=== PATIENT | female | born 1975 | race Caucasian/White ===

== ENCOUNTER 2019-03-10 10:32 | Inpatient (IN) | payer MEDICAID ==
[~2019-03-10] VITALS: Ht 172.7 cm; Wt 92.8 kg
[2019-03-10 10:49] VITALS: Ht 172.7 cm; Wt 92.8 kg
--- NOTE | 2019-03-10 11:36 | TRIAGE ---
OB Triage Datetime Report Generated by CPN: 03/10/2019 11:36 Datetime: 03/10/2019 11:28 Stage of : OB Triage Maternal Assessment Level of Consciousness: Keenly Alert, Responsive DTR's/Clonus: DTRs 1+ Headache: Denies Breath Sounds, Left: Clear and Equal Breath Sounds, Right: Clear and Equal Nausea/Vomiting: Denies RUQ Epigastric Pain: Denies Labor Evaluation Frequency: X1 Monitor Mode: External Duration (sec)2399: 80 Quality: Mild Pattern: Normal: <= 5 Contractions in 10 Minutes Resting Tone [place]: Relaxed Heart Rate FHR Baseline Rate: 125 Monitor Mode: External US Variability: Moderate 6-25 bpm Accelerations: 15X15 Decelerations: None Category: Category I Pain Assessment Pain Scale: 0 Pain Presence: None/Denies Pain Type: N/A Pain Goal: 3 Vaginal Exam Membrane Status: Intact Datetime: 03/10/2019 11:11 Maternal Assessment Level of Consciousness: Keenly Alert, Responsive DTR's/Clonus: DTRs 1+ Headache: Denies Blurred Vision: No Respiratory Effort: Unlabored Breath Sounds, Left: Clear and Equal Breath Sounds, Right: Clear and Equal Nausea/Vomiting: Denies RUQ Epigastric Pain: Denies Facial Edema: None Labor Evaluation Frequency: X1 Monitor Mode: External Duration (sec)2399: 80 Quality: Mild Pattern: Normal: <= 5 Contractions in 10 Minutes Resting Tone [place]: Relaxed Heart Rate FHR Baseline Rate: 125 Monitor Mode: External US Variability: Moderate 6-25 bpm Accelerations: 15X15 Decelerations: None Category: Category I Pain Assessment Pain Scale: 0 Pain Presence: None/Denies Pain Type: N/A Pain Goal: 3 Vaginal Exam Membrane Status: Intact Datetime: 03/10/2019 10:34 EGA: 38.2 Datetime: 03/10/2019 10:30 Assessment Type: Triage Maternal Assessment Level of Consciousness: Keenly Alert, Responsive DTR's/Clonus: DTRs 2+; No Clonus Headache: Denies Blurred Vision: No Respiratory Effort: Unlabored; Regular Rhythm; Equal Expansion Breath Sounds, Left: Clear and Equal Breath Sounds, Right: Clear and Equal Nausea/Vomiting: Denies RUQ Epigastric Pain: Denies Lower Extremities Edema: None Degree: None Upper Extremities Edema: None Degree: None Facial Edema: None Fall Risk Assessment History of Falling: (0) No Secondary Diagnosis: (0) No Ambulatory Aid: (0) Bedrest/Nurse Assist IV Therapy: (0) No Gait: (0) Normal/Bedrest/Immobile Mental Status: (0) Oriented to Own Ability Fall Score: 0 Fall Risk Score Definition: No Risk: No action required Datetime: 03/10/2019 10:17 Time of Arrival: 03/10/2019 10:17 Arrived By: Ambulatory Arrived From: Home Chief Complaint: PT CAME IN C/O LEAKING OF FLUID Movement: Present Contractions: Denies/Absent Rupture of Membranes: Denies Vaginal Discharge: Denies Recent Sexual Intercouse: Denies Abdominal Trauma: Not Applicable Additional Patient Complaints: NONE Time Provider Notified: 03/10/2019 11:27 Provider Notified: ROXANNE Initial Plan: ROM PLUS AND BPP
[2019-03-10] MEDS ORDERED: CARBOPROST 250 MCG INJ IM PRN ×2 (13:00→19:30)
[2019-03-10] MEDS ORDERED: OXYTOCIN 30 UNITS/LR 500 ML IV SCH ×2 (13:00→19:27)
[2019-03-10] MEDS ORDERED: MISOPROSTOL 200 MCG TAB PR PRN ×2 (13:00→19:30)
[2019-03-10] MEDS ORDERED: CEFAZOLIN 2 GM/50 ML (PMX) 50 ML IVPB SCH ×2 (13:00→22:00)
[2019-03-10] MEDS ORDERED: METHYLERGONOVINE 0.2 MG INJ IM PRN ×2 (13:00→19:30)
[2019-03-10] MEDS ORDERED: OXYTOCIN 30 UNITS/LR 500 ML IV PRN ×2 (13:00→19:30)
[2019-03-10] MEDS ORDERED: AZITHROMYCIN 500MG/NS (PMX) 250 ML IVPB ONE (17:30)
[2019-03-10] MEDS ORDERED: OXYTOCIN 30 UNITS/LR 500 ML BAG IV ONE (18:26)
[2019-03-10] MEDS ORDERED: DEXAMETHASONE 4 MG/ML 1 ML INJ ONE (18:27)
[2019-03-10] MEDS ORDERED: ONDANSETRON 4 MG INJ ONE (18:28)
[2019-03-10] MEDS ORDERED: morphine SULFATE/PF (10 MG/10 ML) INJ ONE (18:35)
[2019-03-10] MEDS ORDERED: FENTAnyl 50 MCG/ML VIAL ONE (18:36)
--- NOTE | 2019-03-10 18:49 | PREAC ---
Date/Time of Note Date/Time of Note DATE: 03/10/19 TIME: 18:47 Anesthesia Eval and Record Evaluation Time Pre-Procedure Interview DATE: 03/10/19 TIME: 18:00 Age 43 Sex female NPO: 8 hrs Preoperative diagnosis IUP AT 38 9 WEEKS Planned procedure REPEAT C SECTION Past Medical History Past Medical History: Includes GI: Obesity Surgery & Anesthesia Issues No known issue Meds Anticoagulation: No Beta David within 24 hr: No Reason Beta David not given: Pt. not on B-David Current Medications Lactated Ringer's 1,000 ml @ 125 mls/hr Q8H IV ; Start 03/10/19 at 12:42 Cefazolin Sodium/ Dextrose 50 ml @ 100 mls/hr ONCE IVPB ; Start 03/10/19 at 13:00 Oxytocin/Lactated Ringer's 500 ml @ 125 mls/hr POST IV ; Start 03/10/19 at 13:00 Oxytocin/Lactated Ringer's 500 ml @ 0 mls/hr ONCE PRN IV .VAGINAL BLEEDING; Start 03/10/19 at 13:00 Methylergonovine Maleate (Methergine) 0.2 mg ONCE PRN IM .VAGINAL BLEEDING; Start 03/10/19 at 13:00 Carboprost Tromethamine (Hemabate) 250 mcg ONCE PRN IM .VAGINAL BLEEDING; Start 03/10/19 at 13:00 Misoprostol (Cytotec) 1,000 mcg ONCE PRN MI .VAGINAL BLEEDING; Start 03/10/19 at 13:00 Meds reviewed: Yes Allergies Coded Allergies: No Known Allergy (Unverified , 03/10/19) Allergies Reviewed: Yes Labs/Studies Labs Reviewed: Reviewed by anesthesiologist Result Diagram: 03/10/19 1342 Laboratory Tests 03/10/19 13:42 Blood Bank Test 03/10/19 13:42 Antibody Screen NEGATIVE Blood Type A POSITIVE Rh Immune Globulin Candidate NO test: Positive Pre-procedure Exam Airway: Adequate mouth opening, Adequate thyromental dist Mallampati: Mallampati II Teeth: Normal Lung: Normal Heart: Normal ASA Physical Status ASA physical status: 2 Emergency: None Planned Anesthetic Neuraxial: Spinal Planned Pain Management Sub-arachniod narcotics, Parenteral pain med Pre-operative Attestations Prior to commencing anesthesia and surgery, the patient was re-evaluated, there was verification of: *The patient's identity *The results of appropriate recent lab work and preoperative vital signs *The above evaluation not changing prior to induction *Anesthetic plan, risk benefits, alternative and complications discussed with patient/family; questions answered; patient/family understands, accepts and wishes to proceed. DIMITRIS REYNOLDS Mar 10, 2019 18:49
[2019-03-10] MEDS ORDERED: PHENYLephrine (100 MCG/ML) 10ML SYG ONE (18:56)
[2019-03-10] MEDS ORDERED: ZOLPIDEM 5 MG TAB PO PRN (19:00)
[2019-03-10] MEDS ORDERED: HYDROmorphONE 0.5 MG/0.5 ML SYG IV PRN ×2 (19:00)
[2019-03-10] MEDS ORDERED: DIPHENHYDRAMINE 50 MG INJ IV PRN (19:00)
[2019-03-10] MEDS ORDERED: ONDANSETRON 4 MG INJ IV PRN ×2 (19:00→19:30)
[2019-03-10] MEDS ORDERED: NALOXONE (0.4 MG/ML) INJ IV PRN (19:00)
--- NOTE | 2019-03-10 19:24 | OPPN ---
Date/Time of Note Date/Time of Note DATE: 03/10/19 TIME: 19:22 Operative Report Planned Procedure Procedure date Mar 10, 2019 Procedure(s) repeat low transverse CD Performed by see signature line Mobile Home Technician: RAMONA REAL M.D. 2nd Mobile Home Technician none Anesthesiologist: DIMITRIS REYNOLDS Pre-procedure diagnosis iup at 38 wks ga, prom, previous CD X 3, desire elective repeat CD [id number] Anesthesia Type: Waldo1g spinal Post-Procedure Post-procedure diagnosis same Findings a viable male 8/9 weight 5lb 12 oz. normal uterus tubes and ovaries Estimated Blood Loss: 500 - 600 mls Specimen(s) none Grafts/Implant(s) none Complication(s) none GAVIN OLIVEIRA MD Mar 10, 2019 19:24
[2019-03-10] MEDS ORDERED: NACL 0.9% 3 ML SYG IV SCH (19:30)
[2019-03-10] MEDS ORDERED: ACETAMINOPHEN 325 MG TAB PO PRN (19:30)
[2019-03-10] MEDS ORDERED: BENZOCAINE 20% 56 ML SPRAY TOP PRN (19:30)
[2019-03-10] MEDS ORDERED: LANOLIN HPA 1 PKT TOP PRN (19:30)
[2019-03-10] MEDS ORDERED: WITCH HAZEL/GLYCERIN PAD PR PRN (19:30)
[2019-03-10] MEDS ORDERED: OXYCODONE/ASPIRIN (4.88/325) TAB PO PRN (19:30)
--- NOTE | 2019-03-10 20:20 | PREOPHP ---
DATE OF ADMISSION: 03/10/2019 HISTORY OF PRESENT ILLNESS: Ms. Krysta Engle is a 43-year-old 4, para 3, EDC 03/22/2019 intrauterine at 38 weeks and 2 days gestational age, presented to triage complaining of leaking fluid since last night. She was evaluated to be in premature rupture of membranes. After explaining the risks, benefits and alternatives, the patient desires elective repeat delivery. She denies any contractions, vaginal bleeding. Her care took place with Dr. Solorio. PAST MEDICAL HISTORY: None. MEDICATIONS: vitamins. PAST SURGICAL HISTORY: X 3 previous , x1 laparoscopic cholecystectomy. OBSTETRIC HISTORY: X 3 previous section. GYNECOLOGIC HISTORY: 12/ regular/ 3 to 4 days. Denies any sexually transmitted infections. Sexually active with 1 partner. SOCIAL HISTORY: Denies any smoking, drugs or alcohol. FAMILY HISTORY: None. REVIEW OF SYSTEMS: All within normal, except for history of present illness. PHYSICAL EXAMINATION: HEENT: Within normal. LUNGS: CTA bilateral. CARDIOVASCULAR: S1, S2, regular rhythm. ABDOMEN: Gravid, nontender. Negative CVA bilateral. EXTREMITIES: Negative edema. No calf tenderness. PELVIC: Vaginal exam short and closed with positive pooling. ROM test positive. heart tracing category 1. [place]: Occasional contractions. ASSESSMENT: Intrauterine at 38 weeks and 2 days gestational age with premature rupture of membrane, previous x3, desires elective repeat delivery. PLAN: Consent for repeat . Risks, benefits and alternatives explained. All questions were answered. Dictated By: GAVIN BRITO/JAYME Conf#: [id number] DID#: [id number] MARIFER
[2019-03-10] MEDS: LACTATED RINGER'S 1,000 ML IV SCH (20:42)
--- NOTE | 2019-03-10 21:06 | OPR ---
DATE OF OPERATION: 03/10/2019 PREOPERATIVE DIAGNOSIS: Intrauterine at 38 weeks gestational age, premature rupture of membranes, previous x3, desires elective repeat delivery. Declined vaginal after . POSTOPERATIVE DIAGNOSIS: Intrauterine at 38 weeks gestational age, premature rupture of membranes, previous x3, desires elective repeat delivery. Declined vaginal after . OPERATION PERFORMED: Repeat low transverse delivery. SURGEON: Baltazar Bravo MD. REPLANTING MACHINE CREW: Kota Shine. ANESTHESIOLOGIST: Dr. Sean Paz. ANESTHESIA: Spinal. ESTIMATED BLOOD LOSS: 500 mL. ESTIMATED BLOOD LOSS: None. FINDINGS: A viable male, 8 and 9 respectively at 1 and 5 minutes, weight 5 pounds 12 ounces. Normal uterus, tubes and ovaries. DESCRIPTION OF PROCEDURE: After explaining the risks, benefits and alternatives to the patient, consent signed in chart, the patient was taken to the operating where spinal anesthesia was found to be adequate. She was then prepared and draped in normal sterile fashion in dorsal position with a leftward tilt. A Pfannenstiel skin incision was then made with a scalpel and carried to the underlying fascia. The fascia was incised in the midline. Incision extended laterally with Park scissors. The superior aspect of the fascial incision was grasped with Konstantin clamps, elevated and the underlying rectus muscle dissected off bluntly. Attention was then turned to the inferior aspect incision which in similar fashion was grasped with Konstantin clamps, elevated and the underlying rectus muscle was dissected bluntly. The rectus muscles were then in midline, peritoneum identified, tented up and entered into sharply with Metzenbaum scissors. The peritoneal incision was extended superiorly with good visualization of the bladder. The bladder blade was inserted and lower segment incised in transverse fashion with a scalpel. The uterine incision was extended laterally. The bladder blade was removed and the 's head delivered atraumatically. The nose and mouth were suctioned, cord clamped and cut. The infant was handed off to awaiting statistical engineer. The placenta was then removed and cleared of all clots and debris. The uterine incision was repaired with 3-0 chromic in a running locked fashion. A second layer of same suture was used for imbrication obtaining hemostasis. The uterus was returned to the abdomen. The gutters were cleared of clots. The peritoneum and rectus abdominis muscles reapproximated with 2-0 Vicryl in interrupted fashion. The fascia was reapproximated with 0 Vicryl in a running fashion. The subcutaneous tissue was reapproximated with 2-0 plain gut in a running fashion. The skin was closed with absorbable sara. The patient tolerated procedure well. Sponge, lap, needle counts correct. The patient was taken to recovery room in stable condition. Dictated By: BALTAZAR BRITO/JAYME Conf#: [id number] DID#: [id number] MTDD
[2019-03-10 21:20] VITALS: BP 105/60; PULSE 54; RESP 18
[2019-03-10] MEDS: SENNA/DOCUSATE NA (8.6MG/50MG) TAB PO SCH (21:20)
[2019-03-10 22:30] VITALS: BP 142/74; PULSE 61; RESP 18
[2019-03-10] MEDS: KETOROLAC 30 MG INJ IV PRN (23:06)
[2019-03-11] VITALS: BP 120/66; PULSE 58; RESP 20
[2019-03-11] MEDS: CEFAZOLIN 2 GM/50 ML (PMX) 50 ML IVPB SCH ×3 (02:14→17:48)
[2019-03-11 04:00] VITALS: BP 107/63; PULSE 54; RESP 19
[2019-03-11] MEDS: LACTATED RINGER'S 1,000 ML IV SCH ×2 (04:42→10:09)
[2019-03-11] MEDS: IBUPROFEN 800 MG TAB PO SCH ×4 (06:00→18:00)
--- NOTE | 2019-03-11 07:09 | QN ---
Documentation Comment progress note pod 1 patient seen and evaluated dent clear no complaints vs stable afebrile ab dressing clean/dry no distention non tender extremity no edema no calf tenderness a/ sp cd pod 1 stable afebrile p/ f/u cbc encourage ambulation GAVIN OLIVEIRA MD Mar 11, 2019 07:09
[2019-03-11 08:00] VITALS: BP 112/68; PULSE 54; RESP 19
[2019-03-11] MEDS: SENNA/DOCUSATE NA (8.6MG/50MG) TAB PO SCH ×2 (10:04→20:49)
--- NOTE | 2019-03-11 10:14 | PAC ---
Date/Time of Note Date/Time of Note DATE: 03/11/19 TIME: 10:12 Post-Anesthesia Notes Post-Anesthesia Note Last documented vital signs Vital Signs Date Temp Pulse Resp B/P (MAP) Pulse Ox O2 O2 Flow FiO2 Time Delivery Rate 03/11/19 98.0 54 19 107/63 97 Room Air 04:00 (78) Activity: WNL Respiratory function: WNL Cardiovascular function: WNL Mental status: Baseline Pain reasonably controlled: Yes Hydration appropriate: Yes Nausea/Vomiting absent: Yes DIMITRIS REYNOLDS Mar 11, 2019 10:14
--- NOTE | 2019-03-11 10:15 | OPPN ---
Date/Time of Note Date/Time of Note DATE: 03/11/19 TIME: 10:15 Anesthesia Follow up Anesthesia Follow up Last documented vital signs Vital Signs Date Temp Pulse Resp B/P (MAP) Pulse Ox O2 O2 Flow FiO2 Time Delivery Rate 03/11/19 98.0 54 19 107/63 97 Room Air 04:00 (78) Respiratory function: WNL Cardiovascular function: WNL Comments satisfactory pain management with duramorph DIMITRIS REYNOLDS Mar 11, 2019 10:15
[2019-03-11 12:00] VITALS: BP 116/66; PULSE 51; RESP 18
[2019-03-11 15:55] VITALS: BP 104/54; PULSE 62; RESP 16
[2019-03-11] MEDS: KETOROLAC 30 MG INJ IV PRN (16:15)
[2019-03-11 19:30] VITALS: BP 118/59; PULSE 61; RESP 19
[2019-03-11] MEDS: OXYCODONE/ASPIRIN (4.88/325) TAB PO PRN (22:59)
[2019-03-12] MEDS: IBUPROFEN 800 MG TAB PO SCH ×5 (00:58→23:55)
[2019-03-12] MEDS: OXYCODONE/ASPIRIN (4.88/325) TAB PO PRN ×2 (07:44→20:31)
[2019-03-12 08:00] VITALS: BP 101/65; PULSE 60; RESP 18
[2019-03-12] MEDS: SENNA/DOCUSATE NA (8.6MG/50MG) TAB PO SCH ×2 (10:18→20:31)
[2019-03-12 16:37] VITALS: BP 119/64; PULSE 54; RESP 18
--- NOTE | 2019-03-12 19:14 | QN ---
Documentation Comment progress note pod 2 patient seen and evaluated dent clear no complaints vs stable afebrile ab c/d/i no distention non tender extremity no edema no calf tenderness a/ sp cd pod 2 stable afebrile p/ encourage ambulation GAVIN OLIVEIRA MD Mar 12, 2019 19:14
--- NOTE | 2019-03-12 19:15 | PD.PPDC ---
DE[facility] SPECIALIST Discharge Instruction Condition [id number] Patient Condition: Vjcwk6k Fair Diet Edmqz3Ko Diet: Ctzij0n Resume Regular Diet Activity/Restrictions Qgttk5Es Activity: Jxalg1q Normal Activity May Shower Zikhn2De Restrictions: Tokby5k No Exercising No Lifting No Driving No Sexual Activity Nothing in the Vagina No Frederica No Tampons, douche Wound/Drain Care Instructions [id number] Wound/Drain Care Instructions: Xxxeq8m Wash with soap and water Keep clean and dry Follow-up Follow-up with Physician: 2, Week/Weeks Return to clinic for Dphsn4Lt LSW Instructions: Lxqrc2k Fever greater than 101 Chills Worsening abdominal pain Excessive Vaginal Bleeding More than 2 pads per hour Unable to tolerate diet Wmmdu1Oh OB Instructions: Aohoo0a Breast Tenderness Depression Blurried Vision Headache Nkpub4Hq Surgical Instructions: Jneks1g Incisional Drainage Incisional Redness GAVIN OLIVEIRA MD Mar 12, 2019 19:15
[2019-03-12 20:30] VITALS: BP 125/60; PULSE 59; RESP 18
[2019-03-13 04:00] VITALS: BP 119/70; PULSE 58; RESP 18
[2019-03-13] MEDS: IBUPROFEN 800 MG TAB PO SCH ×2 (05:55→11:30)
[2019-03-13 08:00] VITALS: BP 114/61; PULSE 56; RESP 18
[2019-03-13] MEDS: SENNA/DOCUSATE NA (8.6MG/50MG) TAB PO SCH (09:14)
--- NOTE | 2019-03-13 11:54 | DS ---
DATE OF ADMISSION: 03/10/2019 DATE OF DISCHARGE: 03/12/2019 PRIMARY DIAGNOSIS: Intrauterine at 38 weeks gestational age with premature rupture of memb aundrea, previous x3, desires elective repeat delivery. PROCEDURE: Repeat low transverse delivery. CONDITION ON DISCHARGE: Stable. ACTIVITY: None per vagina, no lifting x6 weeks. DIET: Regular. MEDICATIONS ON DISCHARGE: Motrin 800 mg q. 8 hours p.r.n. severe pain. DISCHARGE SUMMARY: Ms. Krysta Engle underwent a repeat low transverse delivery on 03/10/20 19. She had a viable male, 8 and 9 respectively at 1 and 5 minutes, weight 5 pounds 12 ounces. She had an uneventful postop day 1 and 2. She was discharged on postop day 3. Her incision is [place] an, dry, and intact. She is ambulating, tolerating diet, positive flatulence, positive bowel movemen t. She will follow up in the clinic in 2 weeks for /postop care. Dictated By: GAVIN BRITO/JAYME Conf#: [id number] DID#: [id number]
--- NOTE | 2019-03-14 15:44 | DELSUM ---
Delivery Summary A-C Datetime Report Generated by CPN: 03/14/2019 15:44 DELIVERY PERSONNEL Music Historian: Mao, Sandhya MATERNAL INFORMATION Delivery Anesthesia: Spinal Medications in Delivery: see anesthesia record Delivery QBL (ml): 500 Placenta Cultured: No Maternal Complications: Other Other Maternal Complications: Advanced maternal age LABOR SUMMARY EDC: 03/22/2019 00:00 No. Babies in Womb: 1 Attempted: No Labor Anesthesia: None LABOR INFORMATION Reason for Induction: Not Applicable Group B Beta Strep: Done, Result Unknown Antibiotics # of Doses: X2 Antibiotics Time of Last Dose: 03/10/2019 18:20 Steroids Given: None Reason Steroids Not Administered: Not Applicable MEMBRANES Membranes Rupture Method: Spontaneous Rupture of Membranes: 03/10/2019 06:30 Length of Rupture (hr): 12.25 Amniotic Fluid Color: Clear Amniotic Fluid Amount: Moderate Amniotic Fluid Odor: None STAGES OF LABOR Stage 3 hr: 0 Stage 3 min: 1 CSECTION DELIVERY Primary Indication: Repeat Elective Secondary Indication: >2 Previous CSections CSection Urgency: Elective CSection Incidence: Repeat Labor: Labor Elective: Elective CSection Incision: Lower Uterine Transverse BABY A INFORMATION Delivery Date/Time: 03/10/2019 18:45 Method of Delivery: Born in Route : No : N/A Forceps: N/A Vacuum Extraction: N/A Shoulder Dystocia : No SHOULDER DYSTOCIA BABY A Delivery Date/Time: 03/10/2019 18:45 PRESENTATION/POSITION BABY A Presentation: Cephalic Cephalic Presentation: Vertex Vertex Position: Right Occipital Posterior Breech Presentation: N/A PLACENTA INFORMATION BABY A Placenta Delivery Time : 03/10/2019 18:46 Placenta Method of Delivery: Manual Removal Placenta Status: Delivered SCORES BABY A Heart Rate 1 min: >100 bpm Resp Effort 1 min: Good Cry Reflex Irritability 1 min: Cough/Sneeze/Pulls Away Muscle Tone 1 min: Active Motion Color 1 min: Blue/Pale Resuscitation Effort 1 min: Tactile Stimulation SCORE 1 MIN: 8 Heart Rate 5 min: >100 bpm Resp Effort 5 min: Good Cry Reflex Irritability 5 min: Cough/Sneeze/Pulls Away Muscle Tone 5 min: Active Motion Color 5 min: Body [place], Extremit Blue Resuscitation Effort 5 min: Tactile Stimulation SCORE 5 MIN: 9 INFANT INFORMATION BABY A Gestational Age at Delivery: 38.2 Gestational Status: Early Term- 37- 38.6 Weeks Outcome : Liveborn, with signs of life Condition : Stable Sex: Male IDENTIFICATION/MEDS BABY A ID Band Number: [id number] ID Band Location: Right Leg; Left Arm Sensor Applied: Yes Sensor Number: [id number] Sensor Location : Cord Clamp Vitamin K Given : Not Given Erythromycin Given: Not Given WEIGHT/LENGTH BABY A Birthweight (gm): 2620 Infant Weight (lb): 5 Infant Weight (oz): 12 Infant Length (in): 19.00 Length (cm): 48.26 CORD INFORMATION BABY A No. Cord Vessels: 3 Nuchal Cord : N/A Cord Blood Taken: Yes Infant Suction: Mouth; Nose ASSESSMENT BABY A Complications: None Physical Findings at Delivery: Within Normal Limits Respirations: Appears Normal Cable Mock Up Assembler/ALS Called : No Infant Care By: Luis Arambula RN Transferred To: Remains with Mother
== END 2019-03-13 15:44 | disposition home or self-care (01) | DRG 788 ==
LOC: OBT 10:32 → L-D 10:33 → OBT 11:23 → L-D 11:31 → PP1 21:15
PROVIDERS: ADMIT Obstetrics & Gynecology; ATTEND Obstetrics & Gynecology
PROC: 10D00Z1 Extraction of Products of Conception, Low, Open Approach (ICD-10-PCS; principal; 2019-03-10 16:00)
DX: O42.92 Full-term premature rupture of membranes, unspecified as to length of time between rupture and onset of labor (principal); O34.211 Maternal care for low transverse scar from previous cesarean delivery; O99.214 Obesity complicating childbirth; E66.9 Obesity, unspecified; Z3A.38 38 weeks gestation of pregnancy; Z37.0 Single live birth
CPT/HCPCS: 76818; 84112; 85025; 85610; 85730; 86592; 86850; 86900; 86901; 87340; 99464; G0463; J0456; J0690; J1100; J1200; J1885; J2274; J2370; J2405; J2590; J3010; J7120